=== PATIENT | male | born 2000 | race Hispanic/Latino ===

== ENCOUNTER 2019-01-31 22:50 | Emergency (ER) | payer SELFPAY ==
[2019-01-31] MEDS ORDERED: NA CHLORIDE 0.9% 1,000 ML ONE (23:56)
[2019-02-01 00:04] LABS: Hematocrit 45.9 % (39.6-49.0); Lymphocytes % 2.7 % (15.3-44.8); MPV 8.8 fL (7.6-11.3); RBC Red Blood Cell Count 5.46 M/uL (4.33-5.43)
[2019-02-01 00:05] LABS: Absolute Lymphocytes (CBC) 0.6 K/uL (0.7-4.9); Basophils % 0.1 % (0-1.3)
[2019-02-01 00:25] LABS: Potassium 4.4 mmol/L (3.5-5.1)
[2019-02-01 00:42] LABS: Urine Blood NEGATIVE (NEG); Urine Glucose NEGATIVE (NEG); Urine Protein 2+ (NEG); Urine Specific Gravity >1.030 (1.005-1.030)
[2019-02-01] MEDS ORDERED: NA CHLORIDE 0.9% 1,000 ML ONE ×2 (01:29→01:40)
[2019-02-01 01:58] LABS: Blood Morphology Comment NOT SEEN (NOT SEEN); Platelet Estimate ADEQ
[2019-02-01 03:14] LABS: Potassium 4.1 mmol/L (3.5-5.1)
--- NOTE | 2019-02-01 03:29 | ER ---
Nurse's Notes [facility] Name: Syed Alcantara Age: 18 yrs Sex: Male : 2000 Arrival Date: 01/31/2019 Time: 22:54 Bed 27 Private MD: Diagnosis: Dehydration Presentation: 01/31 23:20 Presenting complaint: Patient states: having cramps all over his body together with wh nausea and vomiting. Pt was working outside since this afternoon and felt dehydrated. Transition of care: patient was not received from another setting of care. Onset of symptoms was January 31, 2019. Risk Assessment: Do you want to hurt yourself or someone else? Patient reports no desire to harm self or others. Initial Sepsis Screen: Does the patient meet any 2 criteria? No. Patient's initial sepsis screen is negative. Does the patient have a suspected source of infection? No. Patient's initial sepsis screen is negative. Care prior to arrival: None. 23:20 Method Of Arrival: Ambulatory 23:20 Acuity: NANCY 3 Triage Assessment: 23:26 General: Behavior is calm, cooperative, appropriate for age. Historical: - Allergies: 23:24 No Known Allergies; - Home Meds: 23:24 None [Active]; - PMHx: 23:24 None; - PSHx: 23:24 None; - Immunization history:: Adult Immunizations not up to date. - Social history:: Smoking status: Patient uses tobacco products. - Ebola Screening: : Patient negative for fever greater than or equal to 101.5 degrees Fahrenheit, and additional compatible Ebola Virus Disease symptoms Patient denies exposure to infectious person. Screenin:23 Abuse screen: Denies threats or abuse. Denies injuries from another. Nutritional screening: No deficits noted. Tuberculosis screening: No symptoms or risk factors identified. Fall Risk None identified. Assessment: 23:25 General: Appears in no apparent distress. Pain: Denies pain. Neuro: Level of Consciousness is awake, alert, obeys commands. Cardiovascular: Capillary refill < 3 seconds. Respiratory: Airway is patent Respiratory effort is even, unlabored, Respiratory pattern is regular, symmetrical. GI: Abdomen is flat, non-distended, Abd is soft and non tender X 4 quads. : No signs and/or symptoms were reported regarding the genitourinary system. EENT: No signs and/or symptoms were reported regarding the EENT system. Derm: Skin is intact, is healthy with good turgor, Skin is pink, warm \T\ dry. normal. Musculoskeletal: Circulation, motion, and sensation intact. 02/01 00:35 Reassessment: Patient appears in no apparent distress at this time. No changes from previously documented assessment. Patient and/or family updated on plan of care and expected duration. Pain level reassessed. Patient is alert, oriented x 3, equal unlabored respirations, skin warm/dry/pink. Patient denies pain at this time. 00:50 Reassessment: Patient appears in no apparent distress at this time. No changes from previously documented assessment. Patient and/or family updated on plan of care and expected duration. Pain level reassessed. Patient is alert, oriented x 3, equal unlabored respirations, skin warm/dry/pink. Patient denies pain at this time. 02:30 Reassessment: Patient appears in no apparent distress at this time. No changes from previously documented assessment. Patient and/or family updated on plan of care and expected duration. Pain level reassessed. Patient is alert, oriented x 3, equal unlabored respirations, skin warm/dry/pink. Patient denies pain at this time. 03:35 Reassessment: Patient appears in no apparent distress at this time. No changes from previously documented assessment. Patient and/or family updated on plan of care and expected duration. Pain level reassessed. Patient is alert, oriented x 3, equal unlabored respirations, skin warm/dry/pink. Patient denies pain at this time. Patient states feeling better. Patient states symptoms have improved. Vital Signs: 01/31 23:22 BP 127 / 92; Pulse 83; Resp 18; Temp 98.4; Pulse Ox 100% on R/A; 02/01 01:30 BP 109 / 54; Pulse 92; Resp 18; Pulse Ox 100% on R/A; 02:30 BP 99 / 58; Pulse 94; Resp 18; Pulse Ox 100% on R/A; 03:36 BP 118 / 100; Pulse 90; Resp 18; Pulse Ox 100% on R/A; ED Course: 01/31 22:54 Patient arrived in ED. ds1 23:15 Maddie Quinonez is Primary Nurse. 23:22 Triage completed. 23:23 Arm band placed on left wrist. 23:24 Patient has correct armband on for positive identification. Bed in low position. Call light in reach. Side rails up X 1. Pulse ox on. NIBP on. 23:27 Teddy Means NP is PHCP. pm1 23:27 Radhames Price MD is Attending Physician. pm1 23:50 Inserted saline lock: 20 gauge in right antecubital area, using aseptic technique. Blood collected. Administered Medications: 23:55 Drug: NS 0.9% 1000 ml Route: IV; Rate: 1000 ml; Site: right antecubital; 02/01 03:36 Follow up: Response: No adverse reaction; IV Status: Completed infusion 01:32 Drug: NS 0.9% 1000 ml Route: IV; Rate: 1000 ml; Site: right antecubital; 03:37 Follow up: Response: No adverse reaction; IV Status: Completed infusion 01:48 Drug: NS 0.9% 1000 ml Route: IV; Rate: 1000 ml; Site: right antecubital; 03:37 Follow up: Response: No adverse reaction; IV Status: Completed infusion Outcome: 03:27 Discharge ordered by . pm1 03:37 Patient left the ED. Signatures: Arianna Pierson ds1 Teddy Means NP LEAD DATA ARCHITECT pm1 Maddie Quinonez
--- NOTE | 2019-02-01 03:29 | EDPHYS ---
Physician Documentation [facility] Name: Syed Alcantara Age: 18 yrs Sex: Male : 2000 Arrival Date: 01/31/2019 Time: 22:54 Bed 27 Private MD: ED Physician Radhames Price HPI: 02/01 00:00 This 18 yrs old Male presents to ER via Ambulatory with complaints of pm1 Dehydration. 00:00 Patient concerned that he is dehydrated. Patient working out in the sun all day. He did pm1 not eat or drink any fluids all day. Patient started having some cramps to bilateral calves that have resolved. Patient with 2 episodes of vomiting. No fever. No abdominal pain or diarrhea. Onset: The symptoms/episode began/occurred today. Severity of symptoms: in the emergency department the symptoms are unchanged. The patient has not experienced similar symptoms in the past. The patient has not recently seen a physician, and does not have an established primary care provider. Historical: - Allergies: 01/31 23:24 No Known Allergies; - Home Meds: 23:24 None [Active]; - PMHx: 23:24 None; - PSHx: 23:24 None; - Immunization history:: Adult Immunizations not up to date. - Social history:: Smoking status: Patient uses tobacco products. - Ebola Screening: : Patient negative for fever greater than or equal to 101.5 degrees Fahrenheit, and additional compatible Ebola Virus Disease symptoms Patient denies exposure to infectious person. ROS: 02/01 00:00 Constitutional: Negative for fever, chills, and weight loss, Eyes: Negative for injury, pm1 pain, redness, and discharge, ENT: Negative for injury, pain, and discharge, Neck: Negative for injury, pain, and swelling, Cardiovascular: Negative for chest pain, palpitations, and edema, Respiratory: Negative for shortness of breath, cough, wheezing, and pleuritic chest pain, Abdomen/GI: Negative for abdominal pain, nausea, vomiting, diarrhea, and constipation, Back: Negative for injury and pain, MS/Extremity: Negative for injury and deformity, Skin: Negative for injury, rash, and discoloration, Neuro: Negative for headache, weakness, numbness, tingling, and seizure. Exam: 00:00 Constitutional: This is a well developed, well nourished patient who is awake, alert, pm1 and in no acute distress. Head/Face: Normocephalic, atraumatic. Chest/axilla: Normal chest wall appearance and motion. Nontender with no deformity. No lesions are appreciated. Cardiovascular: Regular rate and rhythm with a normal S1 and S2. No gallops, murmurs, or rubs. Normal PMI, no JVD. No pulse deficits. Respiratory: Lungs have equal breath sounds bilaterally, clear to auscultation and percussion. No rales, rhonchi or wheezes noted. No increased work of breathing, no retractions or nasal flaring. Abdomen/GI: Soft, non-tender, with normal bowel sounds. No distension or tympany. No guarding or rebound. No evidence of tenderness throughout. Back: No spinal tenderness. No costovertebral tenderness. Full range of motion. Skin: Warm, dry with normal turgor. Normal color with no rashes, no lesions, and no evidence of cellulitis. MS/ Extremity: Pulses equal, no cyanosis. Neurovascular intact. Full, normal range of motion. 00:00 Neuro: Orientation: is normal, Motor: is normal, moves all fours, Sensation: is normal, no obvious gross deficits. Vital Signs: 01/31 23:22 BP 127 / 92; Pulse 83; Resp 18; Temp 98.4; Pulse Ox 100% on R/A; 02/01 01:30 BP 109 / 54; Pulse 92; Resp 18; Pulse Ox 100% on R/A; 02:30 BP 99 / 58; Pulse 94; Resp 18; Pulse Ox 100% on R/A; 03:36 BP 118 / 100; Pulse 90; Resp 18; Pulse Ox 100% on R/A; MDM: 01/31 23:27 Patient medically screened. pm1 02/01 01:30 Counseling: I had a detailed discussion with the patient and/or guardian regarding: the pm1 historical points, exam findings, and any diagnostic results supporting the discharge/admit diagnosis, lab results, the need for further work-up and treatment in the hospital. 01:31 Data reviewed: vital signs. Data interpreted: Pulse oximetry: on room air is 100 %. pm1 Interpretation: normal. 01:37 Physician consultation: Adarsh Puga DO was called at 01:37, was contacted at 01:37, pm1 regarding admission, patient's condition, Recommends 3L NS total and repeat BMP. WBC is likely due to dehydration. 03:25 ED course: Patient feels better after three liters of NS. Patient does not want to stay pm1 in the hospital since he feels better and wants to go home. Instructed the patient to go home, rest from work and rehydrate for the next two to three days. 01/31 23:42 Order name: Basic Metabolic Panel; Complete Time: 00:28 pm1 01/31 23:42 Order name: CBC with Diff; Complete Time: 02:11 pm1 01/31 23:42 Order name: CPK; Complete Time: 00:28 pm1 02/01 00:10 Order name: Urine Dipstick--Ancillary (enter results); Complete Time: 01:05 ar5 02/01 00:21 Order name: Manual Differential; Complete Time: 02:11 EDMS 02/01 02:44 Order name: BMP; Complete Time: 03:23 pm1 01/31 23:42 Order name: IV Saline Lock; Complete Time: 23:54 pm1 01/31 23:42 Order name: Labs collected and sent; Complete Time: 23:55 pm1 01/31 23:42 Order name: Urine Dipstick-Ancillary (obtain specimen); Complete Time: 23:55 pm1 Administered Medications: 01/31 23:55 Drug: NS 0.9% 1000 ml Route: IV; Rate: 1000 ml; Site: right antecubital; 02/01 03:36 Follow up: Response: No adverse reaction; IV Status: Completed infusion 01:32 Drug: NS 0.9% 1000 ml Route: IV; Rate: 1000 ml; Site: right antecubital; 03:37 Follow up: Response: No adverse reaction; IV Status: Completed infusion 01:48 Drug: NS 0.9% 1000 ml Route: IV; Rate: 1000 ml; Site: right antecubital; 03:37 Follow up: Response: No adverse reaction; IV Status: Completed infusion Disposition: 08:24 Co-signature as Attending Physician, Radhames Price MD I agree with the assessment and wa plan of care. Disposition: 02/01/19 03:27 Discharged to Home. Impression: Dehydration. - Condition is Stable. - Discharge Instructions: Dehydration, Adult, Rehydration, Adult. - Medication Reconciliation Form, Thank You Letter, Antibiotic Education, Prescription Opioid Use form. - Follow up: Emergency Department; When: As needed; Reason: Worsening of condition. Follow up: Private Physician; When: 2 - 3 days; Reason: Recheck today's complaints, Continuance of care, Re-evaluation by your physician. - Problem is new. - Symptoms have improved. Signatures: Dispatcher [employer] EDOR Teddy Means NP SHIPPING AND RECEIVING OPERATOR pm1 Maddie Quinonez Radhames Price MD MD wa Corrections: (The following items were deleted from the chart) 03:37 03:27 02/01/2019 03:27 Discharged to Home. Impression: Dehydration. Condition is wh Stable. Forms are Medication Reconciliation Form, Thank You Letter, Antibiotic Education, Prescription Opioid Use. Follow up: Emergency Department; When: As needed; Reason: Worsening of condition. Follow up: Private Physician; When: 2 - 3 days; Reason: Recheck today's complaints, Continuance of care, Re-evaluation by your physician. Problem is new. Symptoms have improved. pm1
[2019-02-01 04:11] VITALS: TEMP 98.4; O2SAT 100
[2019-02-01 04:15] VITALS: BP 118/100
== END 2019-02-01 03:37 | disposition home or self-care (01) ==
LOC: ER 22:50
DX: E86.0 Dehydration (principal); Z72.0 Tobacco use
CPT/HCPCS: 36415; 80048; 81003; 82550; 85025; 96360; 96361; 99284; J7030